=== PATIENT | female | born 1990 | race African-American/Black ===

== ENCOUNTER 2017-02-21 08:33 | Emergency (ER) | payer MEDICAID ==
[~2017-02-21] VITALS: Ht 162.6 cm; Wt 54.4 kg
[2017-02-21] MEDS ORDERED: Metoclopramide 10mg/2ml Inj IM ONE (08:45)
[2017-02-21] MEDS ORDERED: LORazepam Inj 2mg/ml 1ml IM ONE (08:45)
[2017-02-21 09:28] VITALS: BP 137/91
--- NOTE | 2017-02-21 09:42 | Emergency Room Report ---
History of Present Illness General Chief Complaint: Abdominal Pain Source: Patient Present Illness HPI 26YOF BIBEMS for nausea/vomiting since this morning. Patient patient provided limited HPI to EMS but EMS reports normal glucose, vital signs. Patient also not providing HPI to me. Mentions history of DM and gastroparesis. Then continues writhing on stretcher, eyes rolling back in head. But when I leave the room, is calm, per RN. Patient also observed sticking finger down throat to induce gagging. Allergies: Coded Allergies: No Known Allergies (Unverified , 02/21/17) Patient History Limited by: other Past Medical History: DM, other - ?gastroparesis Past Surgical History: none Pertinent Family History: none Social History: Denies: alcohol use, drug use, smoking Last Menstrual Period: 01/21/17 Now: No Immunizations: UTD Reviewed Nursing Documentation: PMH: Agreed, PSxH: Agreed Nursing Documentation-PMH Hx Gastrointestinal Problems: Yes Review of Systems All Other Systems: negative except mentioned in HPI Physical Exam Vital Signs Date Time Temp Pulse Resp B/P Pulse Ox O2 Delivery O2 Flow Rate FiO2 02/21/17 08:27 94 22 146/88 98 Room Air Medical Decision Making Diagnostic Impression: Primary Impression: Vomiting Qualified Codes: G43.A0 - Cyclical vomiting, not intractable ER Course 26YOF with vomiting VSS. Afebrile Stable when MD not in room - becomes histrionic when I'm bedside RN saw patient repeatedly sticking fingers in throat to make herself vomit Refused to provide urine Was tx with IM reglan and ativan Serial vitals stable. Patient likely malingering - doesnt want to return to her long term Abd serially non-focal on exam Low suspicion for acute bacterial or surgical process requiring additional lab, imaging, admission at this point DC with father Rx zofran Last Vital Signs Date Time Temp Pulse Resp B/P Pulse Ox O2 Delivery O2 Flow Rate FiO2 02/21/17 08:27 94 22 146/88 98 Room Air Status: improved Disposition: HOME, SELF-CARE Scripts Ondansetron Odt* (ZOFRAN ODT*) 4 Mg Tab.rapdis 4 MG ORAL BID Y for Nausea & Vomiting for 7 Days, #14 TAB 0 Refills Prov: JAD CARLOS M.D. 02/21/17 JAD CARLOS M.D. Feb 21, 2017 09:42
[2017-02-21] MEDS ORDERED: ZOFRAN ODT4 MG ORAL (09:47)
[2017-02-21 11:16] VITALS: BP 122/64
== END 2017-02-21 11:16 | disposition home or self-care (01) ==
LOC: EDBD 08:33 → EMR 09:54
DX: R11.2 Nausea with vomiting, unspecified (principal); E11.9 Type 2 diabetes mellitus without complications
CPT/HCPCS: 96372; 99283; J2765